=== PATIENT | male | born 1965 | race African-American/Black ===

== ENCOUNTER 2016-10-27 18:30 | Inpatient (IN) | payer MEDICAID, OTHER ==
[~2016-10-27] VITALS: Ht 180.3 cm; Wt 168.3 kg
[~2016-10-27 18:30] MED LIST: APIX5TAB PO; DOCU-144 PO; FER325 PO; FURO-110 PO; LOSA50TA2 PO; METO-407 PO
[2016-10-27] MEDS ORDERED: ONDANSETRON 4 MG INJ IV STA (18:33)
[2016-10-27] MEDS ORDERED: ASPIRIN 325 MG TAB PO STA (18:33)
[2016-10-27] MEDS ORDERED: ALBUTEROL 0.5% (NEB) 2.5 MG/0.5 ML AMP HHN STA (18:33)
[2016-10-27 18:51] LABS: BASOPHILS % 0.1 % (0.0-2.0); EOSINOPHILS # 0.1 10^3/ul (0.0-0.5); EOSINOPHILS % 1.2 % (0.0-7.0); HEMATOCRIT 43.4 % (42.0-52.0); HEMOGLOBIN 14.1 g/dl (14.0-18.0); LYMPHOCYTES # 1.2 10^3/ul (0.8-2.9); LYMPHOCYTES % 15.3 % (15.0-51.0); MEAN CORPUSCULAR HGB CONC 32.5 g/dl (32.0-37.0); MEAN PLATELET VOLUME 12.2 fl (7.4-10.4); MONOCYTE # 0.4 10^3/ul (0.3-0.9); MONOCYTES % 4.7 % (0.0-11.0); NEUTROPHIL # 6.1 10^3/ul (1.6-7.5); NEUTROPHILS % 78.7 % (39.0-77.0); PLATELET COUNT 135 10^3/UL (140-440); RED BLOOD COUNT 5.43 10^6/ul (4.70-6.10); RED CELL DISTRIBUTION WIDTH 18.5 % (11.5-14.5); UNCORRECTED WBC 7.8 10^3/ul (4.8-10.8); WHITE BLOOD COUNT 7.8 10^3/ul (4.8-10.8)
[2016-10-27 18:53] LABS: CONDITION 1; LH ANALYZER COMMENTS 1; SUSPECT 1
[2016-10-27 18:57] LABS: INR 1.38; PT RATIO 1.3
[2016-10-27 18:58] LABS: PARTIAL THROMBOPLASTIN TIME 28.9 Sec (25.0-35.0)
[2016-10-27] MEDS ORDERED: IPRATROPIUM (NEB) 0.5 MG/2.5 ML AMP HHN ONE (19:00)
[2016-10-27 19:12] LABS: CREATININE 1.29 mg/dl (0.61-1.24)
[2016-10-27 19:13] LABS: CALCIUM 9.2 mg/dl (8.4-10.2)
--- NOTE | 2016-10-27 19:21 | RADRPT ---
PROCEDURE: CR, chest CLINICAL INDICATION: Chest pain/shortness of breath. TECHNIQUE: AP chest. COMPARISON: Chest, 04/30/2016. FINDINGS: The heart is moderately enlarged with pulmonary venous congestion. There is no acute infiltrate in the lungs. No pleural effusion. IMPRESSION: 1. Moderate cardiomegaly with pulmonary venous congestion. RPTAT: GG .Conner Cannon MD, MD Date Time Electronically viewed and signed by .Conner Cannon MD, on 10/27/2016 19:21 .Y/
[2016-10-27 19:24] LABS: TROPONIN-I 0.025 ng/ml (0.00-0.12)
[2016-10-27 19:29] LABS: AADO2 Arterial 66.4 mmHg (7.0-24.0); Allen Test ACCEPTAB; Arterial Base Excess 4.5 mmol/L (-3.0-3); Arterial COHb 2.1 % (0.0-3.0); Arterial Fraction of Oxyhgb 91.3 % (93.0-99.0); Arterial HCO3 32.5 mmol/L (22.0-26.0); Arterial MetHb 0.3 % (0.0-1.5); Arterial Total Hemglobin 14.6 g/dl (12.0-18.0); Blood Gas IEPAP 15/5; MODE MASK - BIPAP
[2016-10-27] MEDS ORDERED: METHYLPREDNISOLONE 125 MG INJ IV ONE (20:30)
[2016-10-27] MEDS ORDERED: ALBUTEROL 0.083% (NEB) 2.5 MG/3 ML AMP HHN ONE (20:30)
[2016-10-27] MEDS ORDERED: SOD CHLORIDE 0.9% 1,000 ML IV SCH (20:55)
[2016-10-27] MEDS ORDERED: ALBUTEROL/IPRATROPIUM (NEB) 3 ML AMP HHN PRN (21:00)
[2016-10-27] MEDS ORDERED: ONDANSETRON 4 MG INJ IV PRN ×2 (21:00)
[2016-10-27] MEDS ORDERED: NITROGLYCERIN (SL) 0.4 MG TAB SL PRN (21:00)
[2016-10-27] MEDS ORDERED: NACL 0.9% 3 ML SYG IV SCH (21:00)
[2016-10-27] MEDS: METOPROLOL 100 MG TAB PO SCH (21:00)
[2016-10-27] MEDS ORDERED: LORAZEPAM 2 MG INJ IV PRN (21:00)
[2016-10-27] MEDS ORDERED: ACETAMINOPHEN 325 MG TAB PO PRN ×2 (21:00)
[2016-10-27] MEDS ORDERED: ZOLPIDEM 5 MG TAB PO PRN (21:00)
[2016-10-27] MEDS ORDERED: morphine 2 MG INJ IV PRN (21:00)
[2016-10-27] MEDS: LEVOFLOXACIN 500MG/D5W (PMX) 100 ML IVPB SCH ×2 (21:00→22:31)
[2016-10-27] MEDS ORDERED: FUROSEMIDE 40 MG INJ IV ONE ×2 (21:00)
[2016-10-27] MEDS ORDERED: DOCUSATE SODIUM 100 MG CAP PO PRN ×2 (21:00)
--- NOTE | 2016-10-27 21:00 | ERA ---
ER Documentation Chief Complaint Date/Time DATE: 10/27/16 TIME: 20:53 Chief Complaint BIBA FOR SOB STARTED CPAP ON THE FIELD HPI This 50-year-old male presented in severe respiratory distress on CPAP. States that he's been feeling short of breath more and more for the last couple days and trying his inhalers without to much success. Suddenly about an hour and a half ago he developed severe shortness of breath and felt like he couldn't breathe at all. Denies chest pain states he does have some chest discomfort. States that he is compliant with his CPAP and has both congestive heart failure and CHF. He has been coughing lately as well. Denies nausea vomiting ROS All systems reviewed and are negative except as per history of present illness. Medications Home Meds Active Scripts Furosemide* (Lasix*) 20 Mg Tablet, 20 MG PO DAILY for 30 Days, TAB Prov:ESCAMILLA,OLIVIA V. ANALOG IC DESIGN ARCHITECT 04/30/16 Metoprolol Tartrate* (Lopressor*) 100 Mg Tablet, 100 MG PO BID for 30 Days, TAB Prov:ESCAMILLA,OLIVIA V. ANALOG IC DESIGN ARCHITECT 04/30/16 Losartan Potassium* (Cozaar*) 50 Mg Tablet, 50 MG PO DAILY for 30 Days, TAB Prov:ESCAMILLA,OLIVIA V. ANALOG IC DESIGN ARCHITECT 04/30/16 Ferrous Sulfate* (Ferrous Sulfate*) 325 Mg Tabec, 325 MG PO BID for 30 Days, TAB Prov:ESCAMILLA,OLIVIA V. ANALOG IC DESIGN ARCHITECT 04/30/16 Docusate Sodium* (Colace*) 100 Mg Capsule, 100 MG PO Q12H Y for CONSTIPATION for 30 Days, CAP Prov:ESCAMILLA,OLIVIA V. ANALOG IC DESIGN ARCHITECT 04/30/16 Apixaban* (Eliquis*) 5 Mg Tablet, 5 MG PO BID for 30 Days, TAB Prov:ESCAMILLA,OLIVIA V. ANALOG IC DESIGN ARCHITECT 04/30/16 Allergies Allergies: Coded Allergies: No Known Allergy (Unverified , 04/30/16) PMhx/Soc History of Surgery: No Anesthesia Reaction: No Hx Neurological Disorder: No Hx Respiratory Disorders: Yes (CHF, COPD) Hx Cardiac Disorders: Yes (HTN) Hx Psychiatric Problems: No Hx Miscellaneous Medical Probl: No Hx Alcohol Use: No Hx Substance Use: No Hx Tobacco Use: No Smoking Status: Never smoker Physical Exam Vitals Vital Signs Date Time Temp Pulse Resp B/P Pulse Ox O2 Delivery O2 Flow Rate FiO2 10/27/16 18:37 98.5 64 28 148/80 100 10/27/16 18:30 67 100 30 Physical Exam Const: [] Severe respiratory distress, accessory muscle use on CPAP, obese Head: Atraumatic Eyes: Normal Conjunctiva ENT: Normal External Ears, Nose and Mouth. Neck: Full range of motion..~ No meningismus. Resp: Distant breath sounds, tachypnea Cardio: Regular rate and rhythm, no murmurs Abd: Soft, non tender, non distended. Normal bowel sounds Skin: No petechiae or rashes Back: No midline or flank tenderness Ext: No cyanosis, or edema Neur: Awake and alert and oriented 3, no focal deficits Psych: Appears very anxious Result Diagram: 10/27/16 1835 10/27/16 1835 Results 24 hrs Laboratory Tests Test 10/27/16 18:33 10/27/16 18:35 Arterial Blood HCO3 32.5mmol/L Arterial Blood Base Excess 4.5mmol/L Arterial Blood Oxygen Saturation 93.5mmHG Aleksandr Test ACCEPTAB Arterial Blood Gas Puncture Site Right Radial Arterial Blood Carboxyhemoglobin 2.1% Arterial Blood Date Drawn 10/27/2016 7:15:42 PM Arterial Blood Methemoglobin 0.3% Arterial Blood pCO2 (Temp correct) 63.2mmhg Arterial Blood pH (Temp corrected) 7.329 Arterial Blood pO2 (Temp corrected) 73.2mmHG Blood Gas A-a O2 Differential 66.4mmHg Blood Gas Actual Respiration Rate 30 Blood Gas IPAP/EPAP Ratio 15/5 Blood Gas Inspiratory Time 0.8 Blood Gas Modality MASK - BIPAP Blood Gas Notified Time 10/27/2016 7:28:44 PM Blood Gas Notified Whom AA Blood Gas Respiration Rate 18.0 Blood Gas Specimen Source Blood arterial Blood Gas Temperature 37.0C FiO2 30.0% Oxyhemoglobin Percent 91.3% Total Hemoglobin 14.6g/dl Activated Partial Thromboplast Time 28.9Sec Anion Gap 15 B-Type Natriuretic Peptide 2860PG/ML Basophils # 0.010^3/ul Basophils % 0.1% Blood Morphology Comment Blood Urea Nitrogen 16mg/dl Calcium Level 9.2mg/dl Carbon Dioxide Level 31mmol/L Chloride Level 104mmol/L Creatinine 1.29mg/dl Eosinophils # 0.110^3/ul Eosinophils % 1.2% Glucose Level 120mg/dl Hematocrit 43.4% Hemoglobin 14.1g/dl INR International Normalized Ratio 1.38 Lymphocytes # 1.210^3/ul Lymphocytes % 15.3% Mean Corpuscular Hemoglobin 26.0pg Mean Corpuscular Hemoglobin Concent 32.5g/dl Mean Corpuscular Volume 80.0fl Mean Platelet Volume 12.2fl Monocytes # 0.410^3/ul Monocytes % 4.7% Neutrophils # 6.110^3/ul Neutrophils % 78.7% Nucleated Red Blood Cells # 0.010^3/ul Nucleated Red Blood Cells % 0.0/100WBC Platelet Count 67298^3/UL Potassium Level 4.0mmol/L Prothrombin Time 17.0Sec Prothrombin Time Ratio 1.3 Red Blood Count 5.4310^6/ul Red Cell Distribution Width 18.5% Sodium Level 146mmol/L Troponin I 0.025ng/ml White Blood Count 7.810^3/ul Current Medications Medications (Trade) Dose Ordered Sig/Toby Route PRN Reason Start Time Stop Time Status Last Admin Dose Admin Aspirin (Aspirin) 325 mg ONCE STAT PO 10/27/16 18:33 10/27/16 18:35 DC 10/27/16 18:47 Ondansetron HCl (Zofran Inj) 4 mg ONCE STAT IV 10/27/16 18:33 10/27/16 18:35 DC 10/27/16 18:47 Albuterol (Proventil 0.5% (Neb)) 5 mg ONCE STAT HHN 10/27/16 18:33 10/27/16 18:35 DC 10/27/16 18:44 Ipratropium [place] (Atrovent 0.02% (Neb)) 0.5 mg ONCE ONCE N 10/27/16 19:00 10/27/16 19:01 DC 10/27/16 18:44 Albuterol (Proventil 0.083% (Neb)) 10 mg ONCE ONCE HHN 10/27/16 20:30 10/27/16 20:31 DC Methylprednisolone Sodium Succinate (Solu-Medrol) 125 mg ONCE ONCE IV 10/27/16 20:30 10/27/16 20:31 DC Ondansetron HCl (Zofran Inj) 4 mg ER BRIDGE PRN IV NAUSEA AND/OR VOMITING 10/27/16 21:00 10/28/16 20:59 Acetaminophen (Tylenol Tab) 650 mg ER BRIDGE PRN PO MILD PAIN/FEVER 10/27/16 21:00 10/28/16 20:59 Procedures/MDM Severe respiratory distress likely secondary to COPD. CHF is likely contributed factors well. Patient doesn't have elevated BNP but blood gas done 1 hour after patient was on BiPAP shows a CO2 of 62 indicating is he was likely retaining much more CO2 on arrival. He gradually became more calm: BiPAP. He was given Solu-Medrol, total of 15 of albuterol nebulizer. He was also given nebulized Atrovent. EKG was nonischemic and troponin is negative. The signs of acute coronary syndrome currently. Was given 40 mg of Lasix IV. His respiratory rate did stabilize on the BiPAP. Spoke with Dr. Phipps will be admitted the patient to telemetry. EKG interpretation: Normal sinus rhythm rate of 64, normal axis, no ST or T- wave changes concerning for acute ischemia groundwater monitoring technician interpretation: Normal sinus rhythm without arrhythmia Chest x-ray interpretation: Pulmonary venous congestion, no other acute process , no lukasz pulmonary edema, no infiltrate no pneumothorax, no fractures Critical care time 44 minutes: This includes treatment of severe respiratory distress and respiratory failure with noninvasive positive pressure ventilation , consideration of ET intubation, she met of both COPD and congestive heart failure, chart review, discussion with patient, discussion with admitting doctor , multiple was the patient's bedside to reassess pulmonary and cardiac status. Does not include any billable procedures Departure Diagnosis: Primary Impression: Respiratory failure Additional Impressions: COPD exacerbation Congestive heart failure Renal insufficiency Condition: Serious FRANKY ALCOCER DO Oct 27, 2016 21:00
--- NOTE | 2016-10-27 21:10 | HP ---
Date/Time of Note Date/Time of Note DATE: 10/27/16 TIME: 21:01 Assessment/Plan VTE Prophylaxis VTE Prophylaxis Intervention: other (eliquis) Lines/Catheters IV Catheter Type (from [facility]): [facility] Assessment/Plan Assessment/Plan 50 yo male with a past medical history of chf with diastolic dysfunction, atrial fibrillation on eliquis, hypertension, morbid obesity, with worsening SOB for one week. 1. Acute Respiratory failure - hypercarbic/hypoxemic acute - 2/2 COPD exac - on BiPAP - monitor ABGs, CXR - consult pulm - wean of as tolerated, solu-medrol, levaquin 2. CHF exac - acute on chronic diastolic dysfunction - lasix, repeat ECHO, consult cardio 3. Atrial fibrillation - rate controlled - patient on eliquis 4. Acute renal failure - AIN with ATN - dehydration - gentle fluid hydration 5. Essential hypertension - lopressor/cozaar 6. Morbid obesity - dietary consult, BMI 52.9 7. Anemia - microcytic - chronic - improved since previous visit 8. GI ppx - pepcid 9. DVT ppx - eliquis answered all of his questions. as per clinical course. this history and physical took greater then 45 minutes to complete HPI/ROS Admit Date/Time Admit Date/Time 10/27/2016, 9:02 pm Hx of Present Illness 50 yo male with a past medical history of chf with diastolic dysfunction, atrial fibrillation on eliquis, hypertension, morbid obesity, with worsening SOB for one week. He states that he has been actively wheezing, having chills and his inhalers are not helping. He not been taking steroids, or antibiotics at this time. Associated with this is diarrhea - non-bloody in nature, and pleuritic chest pain, with deep inspiration. No sick contacts or recent travel. Otherwise complains of headache, and dizziness. Denies any fevers, loss of consciousness, nausea/vomiting or other constitutional symptoms. He was last admitted here in March 2016 for fluid overload. ED course: breathing treatments, on BiPAP ECHO 04/28/16 Conclusions 1. Mild concentric left ventricular hypertrophy. Mild enlargement of left ventricle cavity. Mild global left ventricular systolic dysfunction. Ejection fraction is visually estimated at 45 %. 2. Normal right ventricular size. Normal right ventricular systolic function. 3. Mitral valve leaflets appear mildly thickened. Mild mitral valve regurgitation. 4. Normal appearance of the aortic valve. No significant aortic stenosis or insufficiency. 5. Estimated peak PA systolic pressure 24 mmHg. There is mild tricuspid regurgitation. 6. Normal pericardium with no significant pericardial effusion. ROS 14 point review of systems completed, please refer to HPI for any positive findings PMH/Family/Social Past Medical History morbid obesity, atrial fibrillation, anemia of chronic disease Medical History: congestive heart failure, hypertension Past Surgical History s/p angiogram Family History Significant Family History: heart disease (father/mother), hypertension (father /mother) Social History Alcohol Use: occasionally Smoking Status: Former smoker (1 ppd x 15 years, quit 8 years ago) Drug Use: other (PCP - awhile ago) Exam/Review of Systems Vital Signs Vitals Vital Signs Date Time Temp Pulse Resp B/P Pulse Ox O2 Delivery O2 Flow Rate FiO2 10/27/16 18:37 98.5 64 28 148/80 100 10/27/16 18:30 30 Exam Exam Gen Collins: moderate respiratory distress, AAOx4, morbidly obese male HEENT: NC/AT, PERRLA, EOMI, no pharyngeal erythema, no tonsillar exudates, no lymphadenopathy, no JVD, no carotid bruits NECK: supple, no thyromegaly THORAX: symmetrical, no obvious deformities CV: S1S2, irregularly irregular, no M/G/R Lungs: coarse breath sounds throughout all lung cruz, with wheezing appreciated Abd: soft, NT/ND, +BS, no rebound, no guarding, neg HSM EXT: 1+ pitting edema bilateral lower extremities to knees, no ecchymosis, no clubbing, FROM Neuro: CN II-XII grossly intact, no focal deficits Psych: fair mood and affect Skin: dry Labs Result Diagram: 10/27/16 1835 10/27/16 183 Medications Medications Current Medications Furosemide (Lasix) 40 mg ONCE ONCE IV ; Start 10/27/16 at 21:00; Stop 10/27/16 at 21:01; Status UNV Procedures Procedures CXR IMPRESSION: 1. Moderate cardiomegaly with pulmonary venous congestion. ESCOBAR RAWLS MD Oct 27, 2016 21:10
[2016-10-27] MEDS: METHYLPREDNISOLONE 125 MG INJ IV SCH (22:00)
[2016-10-27 22:07] LABS: TROPONIN-I 0.028 ng/ml (0.00-0.12)
[2016-10-27 22:10] LABS: CK-MB 1.43 ng/ml (0.0-2.4)
[2016-10-27 22:25] LABS: THYROID STIMULATING HORMONE 1.74 MIU/L (0.465-4.680)
[2016-10-27] MEDS: FAMOTIDINE 20 MG INJ IV SCH (22:30)
[2016-10-27 23:50] VITALS: TEMP 98.2
[2016-10-28] VITALS (13 sets, daily range): BP systolic 111–137; BP diastolic 59–74; PULSE 57–89; RESP 18; Ht 180.3 cm; Wt 168.3 kg
[2016-10-28] MEDS: APIXABAN 5 MG TABLET PO SCH ×2 (00:45→08:23)
[2016-10-28] MEDS: FERROUS SULFATE (EC) 325 MG TAB PO SCH ×2 (00:45→08:23)
[2016-10-28] MEDS: ALBUTEROL/IPRATROPIUM (NEB) 3 ML AMP HHN SCH ×6 (01:00→15:56)
[2016-10-28 01:58] LABS: TROPONIN-I 0.019 ng/ml (0.00-0.12)
[2016-10-28 02:00] LABS: CK-MB 1.5 ng/ml (0.0-2.4)
[2016-10-28] MEDS: METHYLPREDNISOLONE 125 MG INJ IV SCH ×2 (06:00→10:32)
[2016-10-28] MEDS ORDERED: FUROSEMIDE 20 MG TAB PO SCH (06:00)
[2016-10-28 07:15] LABS: TROPONIN-I 0.024 ng/ml (0.00-0.12)
[2016-10-28 07:16] LABS: POTASSIUM 5.2 mmol/L (3.5-5.1)
[2016-10-28 07:18] LABS: CK-MB 1.79 ng/ml (0.0-2.4)
[2016-10-28 07:19] LABS: CALCIUM 9.1 mg/dl (8.4-10.2); CREATININE 1.05 mg/dl (0.61-1.24)
[2016-10-28 07:33] LABS: EOSINOPHILS % 0.1 % (0.0-7.0); HEMATOCRIT 41.4 % (42.0-52.0); HEMOGLOBIN 13.3 g/dl (14.0-18.0); LYMPHOCYTES # 0.4 10^3/ul (0.8-2.9); LYMPHOCYTES % 5.5 % (15.0-51.0); MEAN CORPUSCULAR HEMOGLOBIN 26.1 pg (29.0-33.0); MEAN CORPUSCULAR HGB CONC 32.3 g/dl (32.0-37.0); MEAN PLATELET VOLUME 12.2 fl (7.4-10.4); MONOCYTES % 0.3 % (0.0-11.0); NEUTROPHIL # 7.1 10^3/ul (1.6-7.5); NEUTROPHILS % 94.1 % (39.0-77.0); PLATELET COUNT 132 10^3/UL (140-440); RED BLOOD COUNT 5.11 10^6/ul (4.70-6.10); RED CELL DISTRIBUTION WIDTH 19.2 % (11.5-14.5); UNCORRECTED WBC 7.6 10^3/ul (4.8-10.8); WHITE BLOOD COUNT 7.6 10^3/ul (4.8-10.8)
[2016-10-28 07:37] LABS: CONDITION 1; LH ANALYZER COMMENTS 1; SUSPECT 1
[2016-10-28] MEDS: METOPROLOL 100 MG TAB PO SCH (08:23)
[2016-10-28] MEDS ORDERED: LOSARTAN 50 MG TAB PO SCH (09:00)
[2016-10-28] MEDS: FAMOTIDINE 20 MG INJ IV SCH (10:32)
--- NOTE | 2016-10-28 10:41 | CONS ---
Date/Time of Note Date/Time of Note DATE: 10/28/16 TIME: 10:32 Assessment/Plan Assessment/Plan Additional Assessment/Plan Labs were reviewed. Chest x-ray was reviewed from yesterday which is showing cardiomegaly changes consistent with pulmonary edema. Echo cardiogram is showing an EF of 45%. Assessment and recommendation; 1. Patient admitted with CHF exacerbation as well as COPD exacerbation/asthma exacerbation. Next 2. Acute bronchitis. 3. History of underlying sleep apnea currently doing well on BiPAP. 4. Acute hypercapnia and hypoxemia clinically improved. 5. Paroxysmal atrial fibrillation currently in sinus rhythm. 6. History of renal insufficiency. 7. Stable hypertension. 8. History of anemia. Continue current treatment for now patient responding well to the current treatment regimen. Consultation Date/Type/Reason Admit Date/Time 10/27/2016, 9:02 pm Date of Consultation: Oct 28, 2016 Type of Consultation: Pulmonary. Reason for Consultation Patient admitted with shortness of breath, CHF exacerbation as well as COPD/ asthma exacerbation. Magdalena Downs is a 51-year-old F [place] male who was admitted yesterday after 3 day history of increasing wheezing, shortness of breath, cough and sputum production which he described as brownish in color. Upon evaluation in the ER, the patient was diagnosed with hypoxemic ,hypercapnic respiratory failure with COPD exacerbation. Admitted to telemetry unit and started on BiPAP and according to the patient there is marked improvement since yesterday. Patient is on continuous home oxygen on account of underlying COPD. He denies having any angina but does complain of sharp chest pain upon coughing. Denies any high fever, chills, any body aches, arthralgias or myalgias to suggest any viral illness. Past Medical History Past medical history is significant for atrial fibrillation, CHF, history of renal insufficiency in the past, hypertension, anemia and obesity. Patient has a history of sleep apnea according to him it is quite severe and the patient is on BiPAP at home. According to him the BiPAP machine greatly relieved his symptoms. Next Medications; reviewed Allergies are none Social history patient quit smoking 6 years ago was not a heavy smoker. He does have a history of marijuana use in the past. Family history: patient is single he has 2 children. Both parents were hypertensive. Occupational history; patient on disability. Hobbies/pets; none. Review of systems; denies any headache, visual changes, seizures. Any hearing loss. Does complain of chronic sinus symptoms. With runny nose. Denies any sore throat, dysphagia, denies any angina. Complains of wheezing for the last 3 days. The patient is on home albuterol as well as long acting steroid inhaler and according to him he uses them regularly and denies any wheezing on outpatient basis until just now. Denies any orthopnea. Patient has limited activity due to dyspnea on exertion. Denies any abdominal pain, reflux. Denies any melena, hematochezia, any urinary symptoms. Denies any edema. Weight is stable. Medical History: congestive heart failure, hypertension Social History Alcohol Use: occasionally Smoking Status: Former smoker Drug Use: other (PCP - awhile ago) Exam/Review of Systems Vital Signs Vitals Vital Signs Date Time Temp Pulse Resp B/P Pulse Ox O2 Delivery O2 Flow Rate FiO2 10/28/16 08:54 68 18 94 Nasal Cannula 2.0 10/28/16 07:05 98.3 122/73 10/28/16 05:30 60 Exam General examination; middle aged man currently in no distress. Vitals were reviewed. HEENT examination; supple neck. No JVD. No lymphadenopathy. No thyromegaly. Pharynx is clear. Good dentition. Pupils are midsize reactive to light. Chest examination: diminished breath sounds bilaterally with bilateral expiratory wheezing. S1-S2 audible no murmurs. Regular rhythm. Abdomen examination; protuberant. Nontender. No organomegaly. Bowel sounds audible. Extremity examination; no peripheral edema. Pulses 2+ bilaterally. There is no clubbing. DEPENDENCY COUNSELOR examination; cranial nerves are intact there is no motor deficit. Results Result Diagram: 10/28/1660410/28/16604 Results 24 hrs Laboratory Tests Test 10/27/16 18:33 10/27/16 18:35 10/27/16 21:20 10/28/16 00:55 Arterial Blood HCO3 32.5 H Arterial Blood Base Excess 4.5 H Arterial Blood Oxygen Saturation 93.5 L Aleksandr Test ACCEPTAB Arterial Blood Gas Puncture Site Right Radial Arterial Blood Carboxyhemoglobin 2.1 Arterial Blood Date Drawn 10/27/2016 7:15:42 PM Arterial Blood Methemoglobin 0.3 Arterial Blood pCO2 (Temp correct) 63.2 H Arterial Blood pH (Temp corrected) 7.329 L Arterial Blood pO2 (Temp corrected) 73.2 L Blood Gas A-a O2 Differential 66.4 H Blood Gas Actual Respiration Rate 30 Blood Gas IPAP/EPAP Ratio 15/5 Blood Gas Inspiratory Time 0.8 Blood Gas Modality MASK - BIPAP Blood Gas Notified Time 10/27/2016 7:28:44 PM Blood Gas Notified Whom AA Blood Gas Respiration Rate 18.0 Blood Gas Specimen Source Blood arterial Blood Gas Temperature 37.0 FiO2 30.0 Oxyhemoglobin Percent 91.3 L Total Hemoglobin 14.6 Activated Partial Thromboplast Time 28.9 Anion Gap 15 B-Type Natriuretic Peptide 2860 H Basophils # 0.0 Basophils % 0.1 Blood Morphology Comment Blood Urea Nitrogen 16 Calcium Level 9.2 Carbon Dioxide Level 31 Chloride Level 104 Creatinine 1.29 H Eosinophils # 0.1 Eosinophils % 1.2 Glucose Level 120 Hematocrit 43.4 Hemoglobin 14.1 INR International Normalized Ratio 1.38 Lymphocytes # 1.2 Lymphocytes % 15.3 Mean Corpuscular Hemoglobin 26.0 L Mean Corpuscular Hemoglobin Concent 32.5 Mean Corpuscular Volume 80.0 L Mean Platelet Volume 12.2 #H Monocytes # 0.4 Monocytes % 4.7 Neutrophils # 6.1 Neutrophils % 78.7 H Nucleated Red Blood Cells # 0.0 Nucleated Red Blood Cells % 0.0 Platelet Count 135 L Potassium Level 4.0 Prothrombin Time 17.0 H Prothrombin Time Ratio 1.3 Red Blood Count 5.43 Red Cell Distribution Width 18.5 H Sodium Level 146 H Troponin I 0.025 0.028 0.019 White Blood Count 7.8 Cholesterol Level 115 Cholesterol/HDL Ratio 2.0 Creatine Kinase 121 135 Creatine Kinase Index 1.2 1.1 Creatinine Kinase MB (Mass) 1.43 1.50 HDL Cholesterol 55 Hemoglobin A1c 5.8 LDL Cholesterol, Calculated 45 Magnesium Level 2.0 Thyroid Stimulating Hormone (TSH) 1.740 Triglycerides Level 77 Test 10/28/16 06:05 Anion Gap 14 Basophils # Pending Basophils % Pending Blood Morphology Comment Blood Urea Nitrogen 12 Calcium Level 9.1 Carbon Dioxide Level 31 Chloride Level 103 Creatine Kinase 119 Creatine Kinase Index 1.5 Creatinine 1.05 Creatinine Kinase MB (Mass) 1.79 Eosinophils # Pending Eosinophils % Pending Glucose Level 160 Hematocrit 41.4 L Hemoglobin 13.3 L Lymphocytes # Pending Lymphocytes % Pending Mean Corpuscular Hemoglobin 26.1 L Mean Corpuscular Hemoglobin Concent 32.3 Mean Corpuscular Volume 81.0 L Mean Platelet Volume 12.2 H Monocytes # Pending Monocytes % Pending Neutrophils # Pending Neutrophils % Pending Nucleated Red Blood Cells # Pending Nucleated Red Blood Cells % Pending Platelet Count 132 L Potassium Level 5.2 H Red Blood Count 5.11 Red Cell Distribution Width 19.2 H Sodium Level 143 Troponin I 0.024 White Blood Count 7.6 Medications Medications Current Medications Apixaban (Eliquis) 5 mg BID PO Last administered on 10/28/16 08:23; Admin Dose 5 MG; Start 10/27/16 at 21:00 Docusate Sodium (Colace) 100 mg Q12H PRN PO CONSTIPATION; Start 10/27/16 at 21: 00 Ferrous Sulfate (Ferrous Sulfate (Ec)) 325 mg BID PO Last administered on 08:23; Admin Dose 325 MG; Start 10/27/16 at 21:00 Furosemide (Lasix) 20 mg DAILY@06 PO Last administered on 10/28/16 06:22; Admin Dose 20 MG; Start 10/28/16 at 06:00 Losartan Potassium (Cozaar) 50 mg DAILY PO Last administered on 10/28/16 08:22 ; Admin Dose 50 MG; Start 10/28/16 at 09:00 Metoprolol Tartrate 100 mg 100 mg BID PO Last administered on 10/28/16 08:23; Admin Dose 100 MG; Start 10/27/16 at 21:00 Sodium Chloride (NS) 1,000 ml @ 30 mls/hr Q24H IV ; Start 10/27/16 at 20:55 Lorazepam (Ativan) 0.5 mg Q6H PRN IV ANXIETY; Start 10/27/16 at 21:00 Ondansetron HCl (Zofran Inj) 4 mg Q6H PRN IV NAUSEA AND/OR VOMITING; Start at 21:00 Nitroglycerin (Nitroglycerin (Sl Tab) 0.4 Mg) 1 tab Q5M PRN SL CHEST PAIN; Start 10/27/16 at 21:00 Morphine Sulfate (morphine) 2 mg Q4H PRN IV PAIN LEVEL 7-10; Start 10/27/16 at 21:00 Zolpidem Tartrate (Ambien) 5 mg QHS PRN PO INSOMNIA; Start 10/27/16 at 21:00 Docusate Sodium (Colace) 100 mg Q12H PRN PO CONSTIPATION; Start 10/27/16 at 21: 00 Famotidine (Pepcid Iv) 20 mg Q12 IV Last administered on 10/27/16t 22:30; Admin Dose 20 MG; Start 10/27/16 at 21:00 Methylprednisolone Sodium Succinate 60 mg 60 mg Q8 IV ; Start 10/27/16 at 22:00 Levofloxacin/ Dextrose (Levaquin 500mg/ D5W 100 ml (Pmx)) 100 ml @ 100 mls/hr Q24H IVPB ; Start 10/27/16 at 21:00 ION CLEMENTS Oct 28, 2016 10:41
--- NOTE | 2016-10-28 15:02 | PDOCDIS ---
Discharge Instructions CONDITION Patient Condition: Good HOME CARE INSTRUCTIONS: Diet Instructions: Reduced Calorie ACTIVITY: Activity Restrictions: No Restrictions FOLLOW UP/APPOINTMENTS Appointments F/U WITH YOUR PCP IN 1-2 WEEKS HERMILO MENDOZA Oct 28, 2016 15:02
[2016-10-28] MEDS ORDERED: FUROSEMIDE 40 MG INJ IV ONE (15:30)
--- NOTE | 2016-10-28 16:30 | DS ---
DATE OF ADMISSION: 10/27/2016 DATE OF DISCHARGE: 10/28/2016 DISCHARGE DIAGNOSES: 1. Acute respiratory failure secondary to chronic obstructive pulmonary disease exacerbation and mi ld congestive heart failure exacerbation, status post Lasix now improved and back to baseline. 2. Morbid obesity, advised weight loss. 3. Atrial fibrillation. Continue home Eliquis. 4. Sleep apnea. Continue home CPAP. 5. Acute kidney injury, possibly cardiorenal resolved with Lasix. 6. Cardiomyopathy with EF 45%. Continue home Lasix p.o., Losartan as well as beta nikunj. HOSPITAL COURSE: The patient is a 51-year-old male with a history of morbid obesity, cardiomyopathy , atrial fibrillation and hypertension. The patient presents with worsening edema and shortness of breath. The patient uses home O2 and BiPAP. The patient was diagnosed with acute congestive heart failure exacerbation on chronic CHF. The patient's CHF systolic dysfunction with once again EF of 4 5%. On arrival, chest x-ray showed moderate cardiomegaly with pulmonary venous congestion. BNP was elevated at 2160, all consistent with CHF. The patient's renal function showed a mild acute kidney injury which resolved with Lasix IV suggesting a cardiorenal etiology. Patient did receive Lasix I V. His shortness of breath did improve and he stated that he was back to his baseline. On the day of discharge, the patient's vitals, labs, physical exam were stable. He had no acute complaints and his questions were answered. He once again states that he is back to his baseline requiring 2 lite rs of oxygen on a regular basis and he has oxygen at home as well as his BiPAP at home. He was advi sed to continue with this physician. He stated that he has a doctor's appointment tomorrow on the day of discharge. Once again vitals, labs, physical exam were stable. He had no acute complaints a nd questions were answered. CONDITION ON DISCHARGE: Stable. DISPOSITION: To home. MEDICATIONS: The patient continues usual medications. No new medications were prescribed. FOLLOWUP: The patient is to follow with his PCP in 1 to 2 weeks. Greater than 30 minutes was spent coordinating discharge of patient. Dictated By: HERMILO MENDOZA MD BS/NTS Conf#: [id number] DID#: [id number]
--- NOTE | 2016-10-28 20:21 | RADRPT ---
Echocardiogram Report Patient Name: COLIN CAMPO Gender: Male Date: 1965 Study Date: 28-Oct-2016 [employer] Repairman: Miguel Angel Cao [facility] Location: [facility] Ref. Physician: ESCOBAR RAWLS Quality: Technically Difficult Study Procedures: Transthoracic echocardiogram with complete 2D, M-Mode, and doppler examination. Indications: Congestive Heart Failure. 2D/M Mode Doppler Measurement Value Normal Ranges Measurement Value Normal Ranges LVIDd 2D 5.9 3.5 - 5.6 cm AV Peak Jaison 1.7 m/sec LVIDs 2D 3.9 2.1 - 4.1 cm AV Peak PG 11.0 mmHg FS 2D 35.0 % LVOT Peak Jaison 1.0 m/sec LVPWd 2D 1.1 0.6 - 1.1 cm LVOT Peak PG 4.0 mmHg IVSd 2D 1.2 0.6 - 1.1 cm MV E Peak Jaison 0.9 m/sec IVS/LVPW 2D 1.0 MV A Peak Jaison 0.8 m/sec AoR Diam 2D 3.5 2.0 - 3.7 cm MV E/A 1.2 LA/Ao 2D 1 0 - 1 MV Decel Time 190 msec EDV 2D 210.0 cm3 MV E/A 1.2 ESV 2D 57.5 cm3 TR Peak Jaison 3.3 m/sec LA Dimen 2D 5.0 2.3 - 4.0 cm TR Peak PG 43.0 mmHg RVSP 51.0 mmHg Findings Left Ventricle: Normal left ventricular systolic function. Normal left ventricular cavity size. Mild concentric left ventricular hypertrophy. Ejection fraction is visually estimated at 55 %. Right Ventricle: Normal right ventricular size. Normal right ventricular systolic function. Left Atrium: There is moderate enlargement of left atrium. Right Atrium: The right atrium is normal in size. Mitral Valve: Mitral valve leaflets appear mildly thickened. Mild mitral annular calcification. Trace mitral regurgitation. Aortic Valve: Normal appearance of the aortic valve. No significant aortic stenosis or insufficiency. Tricuspid Valve: Normal appearance of the tricuspid valve. Estimated peak PA systolic pressure 51 mmHg. There is mild tricuspid regurgitation. Pericardium: Normal pericardium with no significant pericardial effusion. Aorta: Normal aortic root. IVC: Normal size and normal respiratory collapse consistent with normal right atrial pressure. Conclusions 1.Normal left ventricular systolic function. Normal left ventricular cavity size. Mild concentric left ventricular hypertrophy. Ejection fraction is visually estimated at 55 %. 2.There is moderate enlargement of left atrium. 3.Mitral valve leaflets appear mildly thickened. Mild mitral annular calcification. Trace mitral regurgitation. 4.Normal appearance of the tricuspid valve. Estimated peak PA systolic pressure 51 mmHg. There is mild tricuspid regurgitation. Electronically Signed By: Jermaine Doan 28-Oct-2016 20:20:32 -0800 Patient Name: JAMA CAMPOKWADWO Study Date: 28-Oct-[id number]
--- NOTE | 2016-10-29 07:28 | CONS ---
DATE OF ADMISSION: 10/27/2016 DATE OF CONSULTATION: 10/28/2016 TYPE OF CONSULTATION: Cardiology. REASON FOR CONSULTATION: History of atrial fibrillation, congestive heart failure exacerbation. REQUESTING PHYSICIAN: Dr. Phipps from the hospitalist service. HISTORY OF PRESENT ILLNESS: Mr. Downs is a 51-year-old male with history of congestive heart failur e with diastolic dysfunction by most recent echo in 03/2016; atrial fibrillation, on Eliquis; hypert ension; obesity who initially presented with complaints of shortness of breath and wheezing and allison tionally states that he has a history of asthma. Initially upon arrival, temperature of 98.5, blood pressure ____/80, pulse 64, respiratory rate 24, saturating 99% on FIO2 of 30%. The patient's labs : A white cell count of 7.8, hemoglobin of 14.1, a platelet count of 135. Sodium of 146, potassium 4, creatinine 1.29, BUN 16. Troponin negative. BNP is 2860. INR 1.38. The patient had a chest x -ray revealing mild cardiomegaly and pulmonary venous congestion. The patient's electrocardiogram r evealed sinus rhythm at a rate of 64, normal axis, normal intervals, right atrial enlargement, nonsp ecific ST and T abnormalities. The patient subsequently admitted to floor and since admit to floor has been monitored on telemetry revealing sinus rhythm. The patient has had overall improvement in systolic blood pressure on oral antihypertensives. The patient has had 2 additional negative tropon ins, ruling him out for acute myocardial infarction. PAST MEDICAL HISTORY: As above in HPI. MEDICATIONS CURRENTLY IN HOSPITAL: 1. Cozaar 50 mg daily. 2. Lasix 20 mg daily. 3. Solu-Medrol 6 mg IV q.8. 4. Tylenol p.r.n. 5. Apixaban 5 mg p.o. b.i.d. 6. Ferrous sulfate 325 mg daily. 7. Metoprolol 100 mg b.i.d. 8. Ativan. 9. Zofran. 10. ____. 11. Morphine p.r.n. 12. Ambien p.r.n. 13. Colace p.r.n. 14. Pepcid p.r.n. 15. DuoNeb. 16. IV fluid hydration at 30 mL an hour. ALLERGIES: NO KNOWN DRUG ALLERGIES. SOCIAL HISTORY: No tobacco, ETOH, illicit drug use. FAMILY HISTORY: Negative for sudden cardiac or early CAD. REVIEW OF SYSTEMS: As above in HPI. CONSTITUTIONAL: No fevers, chills. PULMONARY: Shortness of breath. CARDIOVASCULAR: History of atrial fibrillation, history of congestive heart failure. GASTROINTESTINAL: No vomiting. GENITOURINARY: No hematuria. MUSCULOSKELETAL: Degenerative joint disease. PSYCHIATRIC: The patient denies depression. NEUROLOGIC: No documented history of CVA. PHYSICAL EXAMINATION: VITAL SIGNS: Temperature 97.5, blood pressure 118/70, pulse ____, respiratory rate 18, saturating 9 2%. GENERAL: The patient is alert, awake. No acute distress. NECK: JVP approximately 8 to 9 cm water. CHEST: Fair air movement throughout. HEART: Regular rate, rhythm. Normal S1, S2. I/ systolic murmur. Nondisplaced PMI. ABDOMEN: Positive bowel sounds, soft. EXTREMITIES: No edema. 1+ pulses bilaterally at posterior tibial. LABORATORY DATA: As above in HPI with most recent from today: Sodium 142, potassium 5.2, creatinin e 1.0, BUN 12. White cell count of 7.6, hemoglobin 13.3, platelet count of 132. INR 1.38. IMAGING STUDIES: As above in HPI. No further imaging studies for my review at this time. ELECTROCARDIOGRAM: As above in HPI. No further electrocardiograms for my review at this time. IMPRESSION: 1. Congestive heart failure, diastolic on most recent echocardiogram, acute on chronic. 2. Hypertension, under improved control. 3. Shortness of breath secondary to #1. 4. Abnormal electrocardiogram with negative troponins x3. 5. History of asthma. 6. ____, mild. RECOMMENDATIONS: 1. At this time would maintain the patient on telemetry monitoring to follow rhythm and rate contro l closely. 2. Would continue the patient's current Cozaar and beta nikunj for control of heart rate and blood pressure and continue the patient's Lasix diuresis, following strict I's and O's to grade diuresis closely. 3. Continue the patient's steroids, bronchodilators and antibiotics, following the patient's respir atory status closely. 4. Would repeat the patient's 2D echo to re-assessment of ejection fraction and would check a repea t EKG in the morning, assess for any significant changes post rule-out and a fasting lipid panel for general risk stratification. Thank you for allowing me to take part in the care of this patient. I will continue to follow along very closely with you with further recommendations to be made as the patient progresses through his inpatient hospital clinical course. Dictated By: MARCO A PELAEZ/ANASTACIO Conf#: [id number] DID#: [id number] CC: HERMILO MENDOZA MD;*EndCC*
== END 2016-10-28 19:35 | disposition home or self-care (01) | DRG 291 ==
LOC: E/R 18:30 → TEL 20:38
PROVIDERS: ADMIT Student in an Organized Health Care Education/Training Program; ATTEND Student in an Organized Health Care Education/Training Program
DX: I50.33 Acute on chronic diastolic (congestive) heart failure (principal); J96.00 Acute respiratory failure, unspecified whether with hypoxia or hypercapnia; J44.1 Chronic obstructive pulmonary disease with (acute) exacerbation; Z68.43 Body mass index [BMI] 50.0-59.9, adult; N17.9 Acute kidney failure, unspecified; I42.9 Cardiomyopathy, unspecified; E66.01 Morbid (severe) obesity due to excess calories; I48.91 Unspecified atrial fibrillation; G47.30 Sleep apnea, unspecified; I10 Essential (primary) hypertension; D64.9 Anemia, unspecified; J20.9 Acute bronchitis, unspecified
CPT/HCPCS: 36415; 36600; 71010; 80048; 80061; 82550; 82553; 82803; 83036; 83735; 83880; 84443; 84484; 85025; 85610; 85730; 93005; 93306; 94640; 94644; 94660; 94664; 96374; 96375; J1940; J1956; J2405; J2930; J7030